=== PATIENT | male | born 1965 | race Caucasian/White ===

== ENCOUNTER 2017-01-20 14:52 | Observation (INO) ==
[2017-01-20] MEDS ORDERED: ASPIRIN PO STA (15:26)
[2017-01-20 15:45] LABS: MANUAL DIFF NEEDED? NO
[2017-01-20 15:49] LABS: BASO% 0.9 % (0.0-0.8); EOS# 0.12 X1000 (0.0-0.7); EOS% 1.8 % (0.0-10.0); HEMATOCRIT 41.9 % (42.0-52.0); HEMOGLOBIN 14.7 g/dL (14.0-18.0); LYMPH# 2.37 X1000 (1.2-3.4); LYMPH% 36.5 % (20.5-51.1); MCH 29.2 PG (27-31); MCHC 35.1 g/dL (33-37); MCV 83.1 FL (81-99); MONO# 0.62 X1000 (0.11-0.59); MONO% 9.6 % (1.7-9.3); MPV 11.4 FL (7.4-10.4); NEUT% 51.2 % (42.2-75.2); PLT 209 X1000 (130-400); RBC 5.04 XMIL (4.7-6.1)
[2017-01-20 15:57] LABS: INR 0.98; PROTIME 10.3 Seconds (9.2-11.7); PTT 32.5 Seconds (22.0-36.0)
[2017-01-20 16:15] LABS: AGAP 13; ALKALINE PHOSPHATASE 78 U/L (32-122); BUN 13 mg/dL (8-22); CALCIUM 8.8 mg/dL (8.8-10.2); CHLORIDE 98 mmol/L (98-107); CK PROFILE 64 U/L (24-204); COSMO 283; GOT 14 U/L (10-34); GPT 17 U/L (10-44); POTASSIUM 4.2 mmol/L (3.5-5.1); SODIUM 135 mmol/L (136-145); TCO2 24 mmol/L (25-35); TOTAL BILIRUBIN 0.51 mg/dL (0.20-1.00); TOTAL PROTEIN 7.1 g/dL (6.3-8.3)
--- NOTE | 2017-01-20 16:28 | Diag Imaging Result Doc PS360 ---
EXAM: CHEST-2 VIEWS HISTORY: CP TECHNIQUE: COMPARISON: 07/18/2016 FINDINGS: The lungs are well expanded. The heart is not enlarged. The vessels are not distended. There are no infiltrates. No pleural effusions. IMPRESSION: No acute abnormality. Electronically signed by Stew Garcia 01/20/2017 4:25 PM
[2017-01-20] MEDS ORDERED: HUMULIN R SUBQ ONE (19:30)
--- NOTE | 2017-01-20 20:45 | PROVIDER DOCUMENTATION ---
This chart was entered by Giselle Luna Scribe, acting as scribe for Zheng Quinonez MD. HPI-Chest Pain - General Chief Complaint: Chest Pain Stated Complaint: CP Time Seen by Provider: 01/20/17 20:08 Source: patient Allergies/Adverse Reactions: Patient Allergies Allergy/AdvReac Type Severity Reaction Status Date / Time rofecoxib [From Vioxx] Allergy Intermediate SHORTNESS Verified 01/20/17 16:35 OF BREATH Home Medications: Home Medication List Medication Instructions Recorded Confirmed Last Taken Type Hum Insulin NPH/Reg Insulin Hm 25 unit SQ QHS 03/27/14 01/20/17 01/19/17 22:00 History [Novolin 70-30 100 Unit/ml Vial] Hum Insulin NPH/Reg Insulin Hm 35 unit SQ QAM 03/27/14 01/20/17 01/20/17 11:00 History [Novolin 70-30 100 Unit/ml Vial] LISINOpril [Prinivil] 20 mg PO DAILY 01/20/17 01/20/17 01/20/17 11:00 History - History of Present Illness-CP Nature of Presenting Problem: 51 Y/O M presents to the ED with Chest Pain. 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 Pt states that the pain increased he became diaphoretic, N and had a dull pain with sharp intermittent pain all day today. Pt states he had a hx of stroke, HTN, Diabetes. Pt states that his first occurrence was a few weeks ago and it lasted about 20-30 mins and went away. Location: reports: central Chest Pain Radiation: reports: no radiation Quality of Pain: reports: dull, sharp Severity in ED: moderate, severe Onset/Duration: this afternoon Timing: still present Context/Activities at Onset: reports: light activity Associated Symptoms: reports: diaphoresis, nausea. denies: abdominal pain, back pain, vomiting Nitro Today/Relief: no nitro taken today Aspirin Treatment Today: 325 mg x 1, provided by ED Review of Systems - Adult - REVIEW OF SYSTEMS - ADULT Constitutional: denies: chills, fever Eyes: reports: no symptoms reported Ears, Nose, Mouth & Throat: reports: no symptoms reported Cardiovascular: reports: chest pain Respiratory: denies: shortness of breath Gastrointestinal: reports: nausea. denies: abdominal pain, diarrhea, vomiting Genitourinary: reports: no symptoms reported Musculoskeletal: reports: no symptoms reported Integumentary: reports: no symptoms reported Neurological: reports: no symptoms reported Psychiatric: reports: no symptoms reported Endocrine: reports: excessive sweating. denies: cold intolerance, heat intolerance Hematologic/Lymphatic: reports: no symptoms reported Allergic/Immunologic: reports: no symptoms reported All Other Systems: Reviewed and Negative Past History - Adult - PAST MEDICAL HISTORY-ADULT Review of Records: reports: Old Records Reviewed, Nursing Assessment Review, Medications Reviewed, Social history reviewed & non-contributory. Major Childhood Illnesses: reports: denies history Cardiovascular: reports: HTN, hyperlipidemia Respiratory: reports: denies history Gastrointestinal: reports: denies history Obstetrical/Gynecological: reports: denies history Genitourinary: reports: denies history Musculoskeletal: reports: denies history Neurological: reports: TIA, other (neuropathy) Endocrine/Immune: reports: Diabetes, other (neuropathy) Other Conditions: reports: denies history - PRIOR SURGERIES/PROCEDURES Surgical/Procedure History: reports: reviewed, not pertinent - PRIOR HOSPITALIZATIONS Prior Hospitalizations: reports: for similar symptoms - IMMUNIZATION STATUS Childhood Immunizations: See Nurse Assessment Flu Vaccine: See Nurse Assessment - FAMILY HISTORY Family History: reviewed, not pertinent Physical Exam-General - CONSTITUTIONAL General Appearance: alert, mild distress, obese - EYES Eyes: PERRL/EOMI, pink conjunctivae - HEAD, EARS, NOSE, MOUTH & THROAT HENMT: moist mucous membranes, normal ENT inspection, TMs normal - NECK Neck: full range of motion, supple, tender lateral, tender midline - RESPIRATORY Respiratory: lungs clear, normal breath sounds - CARDIOVASCULAR Cardiovascular: regular rate, rhythm - CHEST (BREASTS) Chest/Breast: tenderness (left side, with rash noted) - GASTROINTESTINAL (ABDOMEN) Abdominal Exam: non tender, soft - LYMPHATIC Lymphatic: no adenopathy - MUSCULOSKELETAL Back Exam: normal inspection Extremity: normal range of motion, normal gait, tenderness (to touch, pt has neuropathy also) - SKIN Integumentary: normal color, normal turgor - NEUROLOGIC Neurologic: grossly normal - PSYCHIATRIC Psych/Mental Status: normal mood/affect, normal thought content, normal thought process, oriented x 3 Progress - PLAN OF CARE/RESULTS Progress/Plan/Lab Results: Vital Signs - 8 hr 01/20/17 15:20 01/20/17 19:18 Temperature 98.1 F 98.5 F Pulse Rate 76 88 Respiratory Rate 15 18 Blood Pressure 166/78 145/75 O2 Sat by Pulse Oximetry 99 100 Laboratory Results - last 24 hr 01/20/17 01/20/17 01/20/17 15:25 15:25 15:25 WBC 6.49 RBC 5.04 Hgb 14.7 Hct 41.9 L MCV 83.1 MCH 29.2 MCHC 35.1 RDW Std Deviation 12.8 Plt Count 209 MPV 11.4 H Immature Gran % (Auto) 0.0 Neut % (Auto) 51.2 Lymph % (Auto) 36.5 [place] % (Auto) 9.6 H Eos % (Auto) 1.8 Baso % (Auto) 0.9 H Immature Gran # (Auto) 0.00 Neut # (Auto) 3.32 Lymph # (Auto) 2.37 [place] # (Auto) 0.62 H Eos # (Auto) 0.12 Baso # (Auto) 0.06 PT INR PTT (Actin FS) D-Dimer 0.18 Sodium 135 L Potassium 4.2 Chloride 98 Carbon Dioxide 24 L Anion Gap 13 BUN 13 Creatinine 0.8 Estimated GFR/1.73 m2 > 60 BUN/Creatinine Ratio 16 Glucose 335 H Calculated Osmolality 283 Calcium 8.8 Magnesium 2.0 Total Bilirubin 0.51 AST 14 ALT 17 Alkaline Phosphatase 78 Creatine Kinase 64 Troponin T Lte-F-Egvihzjroxg Pept Total Protein 7.1 Albumin 4.0 Globulin 3.1 Albumin/Globulin Ratio 1.3 01/20/17 01/20/17 01/20/17 15:25 15:25 15:25 WBC RBC Hgb Hct MCV MCH MCHC RDW Std Deviation Plt Count MPV Immature Gran % (Auto) Neut % (Auto) Lymph % (Auto) [place] % (Auto) Eos % (Auto) Baso % (Auto) Immature Gran # (Auto) Neut # (Auto) Lymph # (Auto) [place] # (Auto) Eos # (Auto) Baso # (Auto) PT 10.3 INR 0.98 PTT (Actin FS) 32.5 D-Dimer Sodium Potassium Chloride Carbon Dioxide Anion Gap BUN Creatinine Estimated GFR/1.73 m2 BUN/Creatinine Ratio Glucose Calculated Osmolality Calcium Magnesium Total Bilirubin AST ALT Alkaline Phosphatase Creatine Kinase Troponin T < 0.010 Ntn-G-Qdedpbwcmdo Pept 39 Total Protein Albumin Globulin Albumin/Globulin Ratio Orders Category Date Time Status Cardiac Monitoring DIRECTED Care 01/20/17 15:26 Active Saline Loc NOW Care 01/20/17 15:26 Active CHEST-2 VIEWS [RAD] Stat Exams 01/20/17 15:26 Completed CBC WITH ELECTRONIC DIFF [HEME] Stat Lab 01/20/17 15:25 Completed CK PROFILE [SP CHEM] Stat Lab 01/20/17 15:25 Completed COMPREHENSIVE METABOLIC PANEL [CHEM] Stat Lab 01/20/17 15:25 Completed D-DIMER [CHEM] Stat Lab 01/20/17 15:25 Completed MAGNESIUM [CHEM] Stat Lab 01/20/17 15:25 Completed PRO B-NATRIURETIC PEPTIDE Stat Lab 01/20/17 15:25 Completed PROTIME WITH INR [COAG] Stat Lab 01/20/17 15:25 Completed PTT [COAG] Stat Lab 01/20/17 15:25 Completed TROPONIN T Stat Lab 01/20/17 15:25 Completed TROPONIN T Stat Lab 01/20/17 20:08 Ordered Aspirin Med 01/20/17 15:26 Discontinued 325 mg PO STAT STA Insulin Human Regular [Humulin R] Med 01/20/17 19:30 Discontinued 10 unit SUBQ NOW ONE EKG [EKG] Stat Ther 01/20/17 15:26 Ordered EKG [EKG] Stat Ther 01/20/17 20:08 Ordered Result Diagrams: 01/20/17 15:25 01/20/17 15:25 - XRAY 1 XRAY Study: Chest Impression: Normal XRAY Interpretation: NAD - CONSULTS/PCP/HOSPITALIST Notification #1 *Consult/PCP/Hospitalist*: Dr. Diana Time Discussed: 20:39 Reason/Comments: Admit Consult Disposition: Admit (Admit Accepted) Departure - Departure Date of Disposition Decision: 01/20/17 Time of Disposition Decision: 20:41 DIAGNOSIS: Acute coronary syndrome Disposition: ADMITTED INPATIENT 09 Certified Medical Emergency: Emergent Condition: Fair Additional Freetext Instructions: ED Follow Up Instructions: You have been treated by a care provider in the Emergency Department. These instructions are being provided to you so you can have an understanding of how to care for yourself upon discharge. Upon discharge from the Emergency Department, you are responsible for making arrangements for follow-up care by a physician of your choice. Take all prescribed medications as directed. Return to the Emergency Department immediately for any new or worsening symptoms. You may call the Physician Referral phone number at [phone] to obtain a list of Physicians who are taking new patients. Referrals and Follow-Ups: None,PCP [Primary Care Provider] - - Critical Care Note This patient required my direct & personal management of CC.: No This chart was documented by the indicated scribe, (Giselle Luna Scribe) and accurately reflects the services I performed and decisions made by me, Zheng Quinonez MD, as attested by the provider's signature.
[2017-01-20] MEDS ORDERED: MORPHINE IV ONE (21:41)
[2017-01-20] MEDS ORDERED: NITROGLYCERIN TOP ONE (21:41)
--- NOTE | 2017-01-20 22:22 | Diag Imaging Result Doc PS360 ---
EXAM: CERVICAL SPINE 2-VIEWS HISTORY: radicular neuralgia TECHNIQUE: COMPARISON: None. FINDINGS: Good alignment. No precervical soft tissue swelling. No subluxation. Moderate bone spurring at C3-4. IMPRESSION: Degenerative changes in the mid cervical spine. Electronically signed by Stew Garcia 01/20/2017 10:19 PM
--- NOTE | 2017-01-20 23:28 | HISTORY AND PHYSICAL ---
PRIMARY CARE PHYSICIAN: No primary care physician. REASON FOR ADMISSION: Chest pain this afternoon. HISTORY OF PRESENT ILLNESS: Gume Chau is a 51-year-old man with past medical of type 2 diabetes, hypertension and diabetic neuropathy. Comes in today complaining of sudden precordial chest pain while working on his truck. Said the pain is as if someone hit him with a blunt object. It radiates down his left arm and associated numbness in the left arm. He said shortly broke out in intense sweat and became sick to his stomach. No vomiting. No shortness of breath but he felt a little lightheaded. The pain lasted about 20 minutes. He said in the past he has had minor pains like this but only lasted for a few minutes. He denies any antecedent leg swelling, PND or orthopnea, extremity redness. He denies any palpitations, no abdominal complaints. He also complains of another type of chest pain which he says it is burning in sensation and more superficial, this started hours after the initial pain. He said this is constant. The initial pressure-like heaviness he had earlier has been coming intermittently since he has been in the ER for a few minutes and go away. He had a stress test in 2014 which was negative for any ischemia. He denies any cough, fever or chills. REVIEW OF SYSTEMS: No polyuria or polydipsia. He does have chronic lower extremity numbness from diabetic neuropathy. Twelve system review was done, positive findings noted in HPI. Patient says the burning pain he experiences radiates from the front superficial and radiates from the front to the back and is superficial. ALLERGIES TO: Vioxx. HOME MEDICATIONS: He is on 70/30 insulin 35 in the morning and 25 at bedtime, lisinopril 20 mg daily. FAMILY HISTORY: Reports there no heart disease in his family but diabetes and stomach cancer in first-degree relatives. SURGICAL HISTORY: Nil. SOCIAL HISTORY: Lives with his girlfriend, does not smoke, drink or use drugs. LAB: EKG showed normal sinus rhythm, no ST-wave change consistent with ischemia. White count 6000, hemoglobin and hematocrit 14 and 41, platelets 209,000. Sodium 135, glucose 335, troponin x2 negative. D-dimer, PTT normal, chest x-ray negative . PHYSICAL EXAMINATION: GENERAL: Morbidly obese middle-aged man who is not in acute distress. He is A and O x3, normal mood and affect. HEENT: Head is normocephalic, atraumatic. PERRLA, EOMI intact, not pale. ENT oropharynx grossly normal. No central cyanosis. VITAL SIGNS: Blood pressure 145/75 heart rate 80, respirations 18, temperature 98.5, 100% room air. NECK: Supple. No JVD or carotid bruit, thyromegaly. CHEST: Clear to auscultation. Good air entry both lung muniz. CARDIOVASCULAR: First and second heart sounds heard. No gallops, murmurs, rubs. Rhythm is regular. ABDOMEN: Protuberant, soft, nontender. No mass or organomegaly. Bowel sounds are normal. RECTAL: Deferred at this time. EXTREMITIES: Had good pulses distally in all distal extremities with good volume and the above symmetrical. NEUROLOGICAL: The patient has severe hyperesthesia of the entire left thoracic area extending to the back. Does not cross the midline. No rash or eruptions noted. This hyperesthesia also extends to the base of his neck and to his left shoulder. No erythema noted. No abnormal skin findings noted. These extend from C3 all the way to the T6 dermatomes on the left side. Otherwise no focal deficits appreciated. SKIN: Intact. No breakdown, lesion. MUSCULAR EXAM: Grossly normal. ASSESSMENT: 1. Multiple chest pain syndromes of 1 of them could very well be ischemic in nature but is a superimposed neuralgia or at least neuropathic type chest pain. 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 Stress test has been ordered with an echocardiogram. If patient is still has suggestive features I will defer to the suction worker and they may proceed with the catheterization. Other chest pain is very neuropathic in nature. Could be atypical manifestations of diabetic neuropathy which usually would be symmetrical although more neuropathy is not unusual or a mono neuropathy multiplex can occur who. Another diagnosis here will be a herpes zoster although I will write if it is this is a very extensive because of the multiple dermatomes involved and this will be highly unusual for extensive zoster like presentation. The patient however is at risk being immunocompromised being a poorly controlled diabetic. 2. Type 2 diabetes uncontrolled. Check A1c. Continue with insulin and adjust depending on A1c. Consider adding oral agent such metformin or 1 of the other newer agents i.e. GLP-1 or DPP-4 inhibitor. 3. Hypertension. 4. Because of concerns that this patient may have an ischemic etiology underneath his presentation and I am little concerned that may have early on features suggestive of unstable angina I will start patient on Lovenox, continue aspirin, start on statins for now and consult cardiology and schedule the above studies in a.m. I also gave the patient a trial dose of Lyrica for presumptive neuropathic chest pain. cc: Loni Diana MD
[2017-01-20] MEDS ORDERED: ZOFRAN IV PRN (23:46)
[2017-01-20] MEDS ORDERED: MORPHINE IV PRN (23:46)
[2017-01-20] MEDS ORDERED: LIPITOR PO ONE (23:46)
[2017-01-20] MEDS ORDERED: TYLENOL PO PRN (23:46)
[2017-01-20] MEDS ORDERED: CLEOCIN T 1% TOP ONE (23:46)
[2017-01-20] MEDS ORDERED: LOVENOX SUBQ STA (23:46)
[2017-01-21] MEDS: LYRICA PO SCH ×3 (00:05→21:36)
[2017-01-21 00:18] LABS: HEMOGLOBIN A1C 9.4 % (4.8-6.0)
--- NOTE | 2017-01-21 05:35 | EKG Report ---
Test Performed on : 01/20/2017 3:14:24 PM Test Reason : CP/Re-Ordered Blood Pressure : / mmHG Vent. Rate : 077 BPM Atrial Rate : 077 BPM P-R Int : 172 ms QRS Dur : 112 ms QT Int : 362 ms P-R-T Axes : 025 042 037 degrees QTc Int : 409 ms Normal sinus rhythm. Normal ECG When compared with ECG of 31-AUG-2016 19:36, No significant change was found Unconfirmed Result
[2017-01-21] MEDS: PRILOSEC PO SCH (06:42)
[2017-01-21] MEDS ORDERED: INSULIN PEN NEEDLES ONE (06:57)
[2017-01-21 07:24] LABS: AGAP 12; ALBUMIN 3.6 g/dL (3.5-5.0); ALKALINE PHOSPHATASE 68 U/L (32-122); BUN 12 mg/dL (8-22); CALCIUM 8.6 mg/dL (8.8-10.2); CHLORIDE 102 mmol/L (98-107); COSMO 284; GOT 16 U/L (10-34); GPT 18 U/L (10-44); HDL 30 mg/dL (35-55); LDL 84 mg/dL; SODIUM 140 mmol/L (136-145); TCO2 26 mmol/L (25-35); TOTAL BILIRUBIN 0.55 mg/dL (0.20-1.00); TOTAL PROTEIN 6.3 g/dL (6.3-8.3); TRIGLYCERIDES 200 mg/dL (39-160); VLDL 40 mg/dL
--- NOTE | 2017-01-21 08:01 | Diag Imaging Result Doc PS360 ---
EXAM: THORACIC SPINE INDICATION: radicular neuralgia TECHNIQUE: 4 views COMPARISON: None. FINDINGS: There are bulky ventral marginal osteophytes at multiple levels involving the mid and lower thoracic spine. The vertebral body heights are well-maintained. There is no definite fracture, subluxation, or intrinsic osseous lesion, otherwise. IMPRESSION: Multilevel endplate degenerative osteophyte formation as described. Electronically signed by Luis Vasquez 01/21/2017 7:59 AM
[2017-01-21] MEDS ORDERED: LEXISCAN ONE (10:56)
--- NOTE | 2017-01-21 13:05 | CONSULTATION ---
DATE OF CONSULTATION: 01/21/2017 HISTORY OF PRESENT ILLNESS: Cardiology was consulted for chest pain. Mr. Chau is a 55-year-old, gentleman with history of having diabetes, hypertension, presented to the emergency room with complaints of chest pain. He has been having episodes of chest discomfort which he describes as dull in character over the last 2 weeks, sometimes with sharp episodes of chest pain which occurred at rest with minimal exertion with radiation to the left arm associated with heaviness and numbness, with diaphoresis as well. He was ruled out for myocardial infarction by cardiac enzymes. Underwent a stress test today. There are no palpitations. There is no dizziness or syncope. REVIEW OF SYSTEMS: A 14-point review of system was done. GI System: There is no history of nausea, vomiting, diarrhea. There is no history of hematemesis or melena. Central nervous system: No focal weakness to suggest a CVA or TIA. System: There is no dysuria or hematuria. PAST MEDICAL HISTORY: Hypertension, diabetes, TIA at the age of 40, hyperlipidemia. His last stress test in 2014 revealed fixed defect in the inferoapical with severe grade, fixed. Cardiac catheterization then was recommended that was deferred. His last ejection fraction was 45% in 2014. HOME MEDICATIONS: 1. Insulin 70/30 35 units in the morning and 25 at bedtime. 2. Lisinopril 20. SOCIAL HISTORY: He does not smoke. There is no history of alcohol abuse. PHYSICAL EXAMINATION: Vital Signs: On examination, blood pressure was 143/69. Cardiovascular System: Normal jugular venous pressure. There is no thyromegaly. No carotid bruit. First and second heart sounds were heard. There is no S3 gallop. Respiratory System: Normal air entry. There is no crepitations or rhonchi. Abdomen: Soft, obese, nontender. There was no guarding or rigidity. Bowel sounds were heard. Central nervous system: Alert and was moving all 4 extremities. Extremities: Examination of extremities revealed no pedal edema. ALLERGIES: Rofecoxib. ASSESSMENT AND PLAN: 1. Mr. Gume Chau is a 51-year-old gentleman with history of hypertension, hyperlipidemia, and transient ischemic attack in the past, who comes in with exertional chest discomfort, has features of unstable angina. However, his Cardiolite stress test revealed a fixed defect suggestive of scar. Given his worsening symptoms and past medical history, I have recommended that he undergo a left heart catheterization. Risks, benefits, alternatives were explained. Patient will be set up for left heart catheterization in the morning. 2. In addition to his medications, we will put him on aspirin, beta-blockers. 3. His A1c is elevated. I will defer that to the hospitalist service. Thank you for the consult. We will follow hospital course. cc: Aquiles Pearl MD
[2017-01-21] MEDS: NITROGLYCERIN TOP SCH ×3 (14:14→21:36)
[2017-01-21] MEDS: PRINIVIL PO SCH (14:16)
[2017-01-21] MEDS: HUMULIN 70/30 SUBQ SCH (14:17)
[2017-01-21] MEDS: ASPIRIN PO SCH (14:33)
--- NOTE | 2017-01-21 15:11 | PROGRESS NOTE ---
DATE: 01/21/2017 SUBJECTIVE: Patient reports feeling fine. No chest pain any more. No chest discomfort or nausea or vomiting. OBJECTIVE: Vital Signs: Temperature 98 degrees, heart rate 61, respiratory rate 16, blood pressure 143/69, O2 saturation 92% on nasal cannula. General Examination: This is a morbidly obese, middle-aged male, lying in bed, in no acute distress. HEENT: Head is normocephalic, atraumatic. Anicteric sclerae and pale conjunctivae. Mucous membranes moist. Neck: Supple. No JVD noted. No carotid bruits. No lymphadenopathy. No thyromegaly. Cardiovascular: S1, S2 heard. No murmurs, gallops, or rubs. Regular rate and rhythm. Respiratory: Clear bilaterally to auscultation. No work of breathing or using accessory muscles. Abdomen: Soft, nontender to palpation. Bowel sounds present. No organomegaly. Extremities: No clubbing, cyanosis, or edema. Peripheral pulses present in both legs. Neurological: Patient is alert and oriented x3. Able to move 4 extremities. Cranial nerves 2-12 grossly normal. LABORATORY DATA: The BMP from today is normal and troponin 3 sets have been negative so far. ASSESSMENT AND PLAN: 1. Recurrent chest pain. The patient has been evaluated by Cardiology and they are going to perform a left heart catheterization tomorrow. We will go from there. 2. Diabetes type 2. The patient is on sliding scale insulin. We will continue with the same management. 3. Hypertension. Blood pressure is so far stable in the 140's and 150's. We are going to continue with the same management. cc: Anirudh Johnson MD
--- NOTE | 2017-01-21 15:28 | Diag Imaging Result Document ---
PROCEDURE NAME: MYOCARDIAL PERF SCAN, STR/REST - 01/21/2017 SUMMARY: The patient was administered 15.5 millicuries of technetium-99m sestamibi after which resting cardiac images were obtained. The patient was subsequently stressed using a Lexiscan protocol. Following the administration of Lexiscan, the heart rate increased from 59 beats per minute to 75 beats per minute while the blood pressure went from 136/66 to 122/72. With Lexiscan, the patient denied chest discomfort. Following the administration of Lexiscan, the patient was administered 45.7 millicuries of technetium 99-m sestamibi after which gated stress cardiac images were obtained. Baseline ECG demonstrated sinus bradycardia. With Lexiscan there were no diagnostic ST-segment changes. SPECT images were reconstructed in the short, horizontal, and vertical long axis. Review of these images demonstrated moderately diminished activity in the inferior wall on stress images which appears more diminished on resting images. No significant reversibility is evident. Gated images demonstrate a calculated left ventricular ejection fraction of 49% with symmetrical wall motion/thickening. CONCLUSIONS: 1. Adequate response to Lexiscan. 2. Clinically negative for chest pain. 3. Electrocardiographically negative for Lexiscan induced myocardial ischemia. 4. Lexiscan sestamibi images demonstrate nonreversible moderately diminished activity in the inferior wall with corresponding preserved regional wall motion most consistent with soft tissue/diaphragm attenuation artifact in light of patient's body habitus. There is no convincing scintigraphic evidence of inducible myocardial ischemia. Calculated left ejection fraction is 49%. cc: MD Loni De Jesus MD
--- NOTE | 2017-01-21 15:56 | ECHO REPORT ---
ORDER DATE: 01/20/2017 MEASUREMENTS: 1. Left atrium 3.9 cm. 2. Aortic root 3.8 cm. SUMMARY: 1. Technically difficult study due to limited acoustic window quality. Intravenous echo contrast agent Definity was utilized to enhance endocardial definition for purposes of assessing left ventricular systolic function and wall motion. 2. Aortic valve is trileaflet and opens normally on 2-dimensional images. Mitral, tricuspid, and pulmonic valves are without gross structural abnormality. There is trace tricuspid regurgitation and mild pulmonic insufficiency. Aortic root is upper normal in size. 3. Normal left ventricular chamber size with moderate concentric left hypertrophy suggested on 2- D images. Estimated left ejection fraction appears to be 50%-55%. No regional wall motion abnormalities are evident. Left atrium is upper normal in size. Right atrium and right ventricle are grossly normal in size with grossly preserved right ventricular systolic function. 4. No pericardial effusion. 5. Appearance of inferior vena cava suggests normal central venous pressure. CONCLUSIONS: 1. Technically difficult study. 2. No significant valvular abnormality evident. 3. Moderate concentric left hypertrophy with estimated left ejection fraction 50%-55%. 4. Upper normal aortic root size. cc: MD Loni De Jesus MD
[2017-01-21] MEDS ORDERED: HUMULIN 70/30 SUBQ SCH (21:00)
[2017-01-22] MEDS: NITROGLYCERIN TOP SCH ×2 (01:31→10:56)
[2017-01-22] MEDS ORDERED: NS 1,000 ML IV SCH ×2 (02:59→10:00)
[2017-01-22] MEDS: PRILOSEC PO SCH (06:27)
[2017-01-22 06:53] LABS: HEMOGLOBIN 14.1 g/dL (14.0-18.0); MCH 29.7 PG (27-31); MCHC 34.4 g/dL (33-37); MCV 86.3 FL (81-99); MPV 11.3 FL (7.4-10.4); RBC 4.75 XMIL (4.7-6.1)
--- NOTE | 2017-01-22 06:57 | EKG Report ---
Test Performed on : 01/22/2017 05:58:35 AM Test Reason : heart cath Blood Pressure : / mmHG Vent. Rate : 060 BPM Atrial Rate : 060 BPM P-R Int : 182 ms QRS Dur : 120 ms QT Int : 406 ms P-R-T Axes : 054 053 044 degrees QTc Int : 406 ms Normal sinus rhythm. Nonspecific intraventricular conduction delay Borderline ECG When compared with ECG of 20-JAN-2017 15:14, No significant change was found Confirmed by Fabian Ham MD ([id number]) on 01/23/2017 12:59:53 PM
[2017-01-22 07:04] LABS: PROTIME 10.5 Seconds (9.2-11.7); PTT 32.5 Seconds (22.0-36.0)
[2017-01-22 07:29] LABS: AGAP 8; ALBUMIN 3.8 g/dL (3.5-5.0); ALKALINE PHOSPHATASE 69 U/L (32-122); BUN 13 mg/dL (8-22); CALCIUM 8.6 mg/dL (8.8-10.2); CHLORIDE 101 mmol/L (98-107); COSMO 279; GOT 15 U/L (10-34); GPT 22 U/L (10-44); POTASSIUM 3.9 mmol/L (3.5-5.1); SODIUM 136 mmol/L (136-145); TCO2 27 mmol/L (25-35); TOTAL BILIRUBIN 0.54 mg/dL (0.20-1.00); TOTAL PROTEIN 6.6 g/dL (6.3-8.3)
[2017-01-22] MEDS: ASPIRIN PO SCH (08:07)
[2017-01-22] MEDS: PRINIVIL PO SCH (08:07)
[2017-01-22] MEDS ORDERED: NITROGLYCERIN ONE (08:07)
[2017-01-22] MEDS ORDERED: HEPARIN 1000 UNITS/NS 2,000 UNIT/1,000 ML IV.SOLN ONE (08:08)
[2017-01-22] MEDS ORDERED: DEMEROL ONE (08:31)
[2017-01-22] MEDS ORDERED: VERSED ONE (08:31)
--- NOTE | 2017-01-22 10:06 | CARDIAC CATH REPORT ---
DATE: 01/22/2017 PROCEDURE: 1. Left heart catheterization. 2. Selective coronary arteriography. 3. Left ventriculogram. 4. Opacification of right femoral artery. 5. Deployment of 6-Martiniquais Angio-Seal device. HISTORY: A 51-year-old male, morbidly obese, presenting with recurrent chest pain. Dr. Pearl saw him in consultation, recommended a nuclear stress test which showed an inferior abnormality. He advised to pursue left heart catheterization. The patient was appropriately consented. He requested to go ahead with arteriography. 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 The right groin was prepped and draped in standard fashion, anesthetized with lidocaine 1%. He received a total of 2 mg of Versed, 50 mg of Demerol for sedation. A 6-Martiniquais sheath was inserted into the right femoral artery following the modified Seldinger technique. Using 6-Martiniquais 4 left and right Isela catheters, the left and right coronary artery was sequentially opacified. During the opacification of the left coronary artery, 200 mcg of intracoronary nitroglycerin were administered. Using the right Isela catheter, the aortic valve was negotiated. Left ventricular pressure was determined. Left ventriculogram was performed in the 60-degree EGYPTIAN projection and 30-degree PANCHAL projection by hand injection. During the opacification of the ventricle, there was a change in the appearance of the EKG into a bundle branch block type of pattern, probably rate related. This reverted back to normal after the procedure was completed. At the end of the procedure, all the catheters were removed. The sheath was flushed. Right femoral artery opacified. Angio-Seal device was deployed successfully. Hemostasis was obtained. The patient tolerated the procedure well without any complications. SUMMARY OF HEMODYNAMIC FINDINGS: Central aortic pressure 157/84. Left ventricular pressure 135/18. Post LV gram 126/19. Final central aortic pressure 146/73. This indicates borderline elevation of LVEDP. SUMMARY OF ANGIOGRAPHIC FINDINGS: 1. Left main coronary artery: The left main coronary artery is angiographically normal. The left main divides into the LAD and circumflex. 2. Left anterior descending coronary artery: The left anterior descending coronary artery is anatomically normal. It gives rise to a prominent diagonal branch which shows mild disease proximal in the range of 20%. No critical lesions are noted. 3. Circumflex coronary artery: The circumflex coronary artery is a nondominant vessel. It basically gives rise to the marginal branch which is free of any significant obstruction. The circumflex also gives rise to a tiny lateral branch. 4. Right coronary artery: The right coronary artery is a large superdominant vessel. It has a large caliber in the order of 4.5 mm. It shows mild disease in the order of 20%. It gives rise to a sinus jose alberto branch, marginal branches. More distally the right coronary artery gives rise to a posterior descending branch and posterior ventricular lateral branch. LEFT VENTRICULOGRAM: Left ventriculogram in the 30-degree PANCHAL projection and 60-degree EGYPTIAN projection reveals normal left ventricular contractility. No mitral regurgitation. Ejection fraction 60%. OPACIFICATION OF RIGHT FEMORAL ARTERY: The right femoral artery is unremarkable. Angio-Seal device was deployed successfully. IMPRESSION: In summary, this study shows: 1. Minimal coronary atherosclerosis involving the diagonal branch of the LAD, no more than 20%, and also the right coronary artery in its proximal to middle third, no more than 20%. 2. Normal left ventricular systolic function. Ejection fraction 60%. 3. LVEDP at the upper limits of normal. 4. No mitral regurgitation. No aortic stenosis. 5. Unremarkable right femoral artery. RECOMMENDATIONS: The patient will pursue medical therapy under the services of his primary medical doctor. His prognosis at least for the short and medium term is actually quite good. Thank you for the opportunity to participate in his evaluation. cc: Johnny Preciado MD
[2017-01-22] MEDS: HUMULIN 70/30 SUBQ SCH (10:56)
[2017-01-22] MEDS: LYRICA PO SCH (10:56)
--- NOTE | 2017-01-22 15:23 | EKG Report ---
Test Performed on : 01/22/2017 10:00:18 AM Test Reason : post cath Blood Pressure : / mmHG Vent. Rate : 055 BPM Atrial Rate : 055 BPM P-R Int : 190 ms QRS Dur : 120 ms QT Int : 418 ms P-R-T Axes : 053 051 055 degrees QTc Int : 399 ms Sinus bradycardia. Nonspecific intraventricular conduction delay Borderline ECG When compared with ECG of 22-JAN-2017 05:58, (Unconfirmed) No significant change was found Confirmed by Fabian Ham MD ([id number]) on 01/23/2017 1:00:54 PM
[2017-01-22 16:18] VITALS: BP 148/70
--- NOTE | 2017-01-22 17:40 | DISCHARGE SUMMARY ---
ADMISSION DATE: 01/20/2017 DISCHARGE DATE: 01/22/2017 PERTINENT PROCEDURES: 1. Chest x-ray showed no acute abnormality. 2. Cervical spine x-ray showed degenerative changes in the mid cervical spine. 3. Thoracic spine x-ray show multilevel endplate degenerative osteophyte formation. 4. Echocardiogram showed an EF of 50 to 55%. 5. Myocardial perfusion scan with an adequate response to the Lexiscan. Also showed nonreversible moderately diminished activity in the inferior wall with corresponding preserved regional wall motion most consistent with soft tissue diaphragm attenuation artifact in light of patient's body habitus. No evidence of inducible myocardial ischemia. 6. Left heart cath performed by Dr. Preciado showed minimal coronary atherosclerosis involving the diagonal branch of the LAD and right coronary artery. Normal EF. DISCHARGE DIAGNOSES: 1. Recurrent chest pain status post negative Lexiscan, as well as a negative heart catheterization. The patient will pursue per cardiology medical therapy under the services of a primary medical doctor. Patient's prognosis per cardiology for at least short-term or medium-term is actually quite good, stable. 2. Diabetes mellitus type 2. Continue with home medications. 3. Hypertension. Continue with home medications. HOSPITAL COURSE: Briefly, Mr. Chau is a 55-year-old male with a history of diabetes and hypertension, who presented to the ED with chest pain. He has had episodes of chest discomfort for which he describes as dull in character for 2 weeks. Sometimes sharp episodes of chest pain which occurred at rest with minimal exertion with radiation to the left arm, associated with heaviness, numbness, and diaphoresis. He was ruled out for [place] with cardiac enzymes. He underwent a stress test that revealed a fixed defect suggestive of a scar. Cardiology recommended that he undergo a left heart catheterization that showed minimal coronary atherosclerosis involving the diagonal branch of the LAD of no more than 20% and also the RCA in its proximal to middle 3rd, no more than 20%. Normal LV systolic function with an EF of 60%. Their recommendation is to pursue medical therapy under the services of her primary medical doctor and that his prognosis at least for short-term and medium-term is actually quite good. The patient is appropriate for discharge home today. VITAL SIGNS: Temperature is 97.6 degrees, heart rate 55, respirations 14, blood pressure is 159/74, O2 is 100%. DISCHARGE DIET: Healthy heart. DISCHARGE MEDICATIONS: As per Dr. Johnson: 1. Aspirin 81 mg p.o. daily. 2. Novolin 70/30 25 units subcutaneous at bedtime, 40 units subcutaneous q.a.m. 3. Prinivil 20 mg p.o. daily. 4. Lyrica 50 mg p.o. b.i.d. FOLLOW-UP: The patient will need to follow up with a primary care physician, to the list that has been provided to him to follow up for medical management. The patient can return to the ED for any worsening of symptoms. DISCHARGE TIME: 33 minutes. Dictated by KIYA Bermudez for Anirudh Johnson MD cc: Anirudh Johnson MD MTDD
== END 2017-01-22 17:05 | disposition home or self-care (01) ==
LOC: 3N 14:52 → ED 14:52 → SUATTDRO 23:23 → 3S 01-22 09:13
PROVIDERS: ATTEND Internal Medicine

== ENCOUNTER 2019-10-12 23:24 | Observation (INO) ==
[2019-10-12] MEDS ORDERED: ASPIRIN PO ONE (23:43)
[2019-10-13 00:42] LABS: AGAP 13; ALB/GLOB RATIO 1.4; ALBUMIN 4.2 g/dL (3.5-5.0); ALKALINE PHOSPHATASE 73 U/L (32-122); BUN 15 mg/dL (8-22); CALCIUM 10.1 mg/dL (8.8-10.2); CHLORIDE 100 mmol/L (98-107); CK PROFILE 82 U/L (24-204); COSMO 280; CREATININE 0.9 mg/dL (0.7-1.2); ESTIMATED GFR > 60; GLUCOSE 100 mg/dL (70-104); GOT 20 U/L (10-34); GPT 19 U/L (10-44); MAGNESIUM 2.1 mg/dL (1.5-2.7); POTASSIUM 4.2 mmol/L (3.5-5.1); SODIUM 140 mmol/L (136-145); TCO2 27 mmol/L (25-35); TOTAL BILIRUBIN 0.35 mg/dL (0.20-1.00); TOTAL PROTEIN 7.2 g/dL (6.3-8.3)
[2019-10-13 01:15] LABS: BASO# 0.06 X1000 (0.0-0.2); BASO% 0.6 % (0.0-0.8); EOS# 0.22 X1000 (0.0-0.7); EOS% 2.4 % (0.0-10.0); HEMATOCRIT 38.9 % (42.0-52.0); HEMOGLOBIN 13.3 g/dL (14.0-18.0); IMM GRAN# 0.02 X1000 (0.0-0.04); IMM GRAN% 0.2 % (0.0-0.5); LYMPH# 2.42 X1000 (1.2-3.4); LYMPH% 26.2 % (20.5-51.1); MCH 29.2 PG (27-31); MCHC 34.2 g/dL (33-37); MCV 85.3 FL (81-99); MONO# 1.08 X1000 (0.11-0.59); MONO% 11.7 % (1.7-9.3); MPV 10.7 FL (7.4-10.4); NEUT# 5.44 X1000 (1.4-6.5); NEUT% 58.9 % (42.2-75.2); PLT 256 X1000 (130-400); RBC 4.56 XMIL (4.7-6.1); RDW 13.1 % (11.5-14.5); WBC 9.24 X1000 (4.8-10.8)
--- NOTE | 2019-10-13 03:55 | PROVIDER DOCUMENTATION ---
This chart was entered by Heidy Ortiz Scribe, acting as scribe for Christina Nagel MD. HPI-Chest Pain - General Chief Complaint: Chest Pain Stated Complaint: CHEST PAIN/HIGH HEART RATE Time Seen by Provider: 10/12/19 23:54 Source: patient Allergies/Adverse Reactions: Patient Allergies Allergy/AdvReac Type Severity Reaction Status Date / Time rofecoxib [From Vioxx] Allergy Intermediate SHORTNESS Verified 10/13/19 00:16 OF BREATH Home Medications: Home Medication List Medication Instructions Recorded Confirmed Last Taken Type Hum Insulin NPH/Reg Insulin Hm 18 unit SQ TID 03/27/14 10/13/19 10/12/19 History [Novolin 70-30 100 Unit/ml Vial] Amitriptyline [Elavil] 25 mg PO QHS 12/26/18 10/13/19 10/12/19 History Amlodipine [Norvasc] 10 mg PO DAILY 12/26/18 10/13/19 10/12/19 History LOVAstatin [Mevacor] 20 mg PO QHS 12/26/18 10/13/19 10/12/19 History Lisinopril 40 mg PO DAILY 12/26/18 10/13/19 10/12/19 History Insulin Detemir [Levemir Flextouch] 10/13/19 Unknown History Nitroglycerin [Nitrostat] 1 tab SUBLINGUAL Q5M PRN PRN 10/13/19 10/13/19 10/12/19 History - History of Present Illness-CP Nature of Presenting Problem: Pt is a 54 yowm presenting in the ED with c/o throbbing chest pain that pt says started around 6pm in the sternal area and radiated into his left shoulder. Pt says that he was visiting his son and a nearby chicken house had a strong [place] smell. Pt reports that he has felt fatigued all day and that his face has been red in appearance. Pt states that he took a nitroglycerin and that now in the ED he has a headache and the pain feels like pressure just in the left mammary area of his chest. Pt has a hx of [place] and diabetes. 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 Pt denies N/V, fever/chills and SOB. Pt is A&O x3 and nontoxic in appearance. Location: reports: substernal Chest Pain Radiation: reports: shoulders (left) Quality of Pain: reports: throbbing Severity in ED: mild Onset/Duration: abrupt, 4-6 hours ago Timing: still present, changing over time Context/Activities at Onset: reports: light activity. denies: out of country travel Modifying Factors: improves with: other medication (nitroglycerin) Associated Symptoms: reports: headache. denies: abdominal pain, diaphoresis, dizziness, fever/chills, nausea, shortness of breath, syncope, vomiting Nitro Today/Relief: 0.4 mg x 1, provided at home Aspirin Treatment Today: 325 mg x 1, provided by ED Prior Chest Pain/Cardiac Workup: reports: heart attack Similar Symptoms Previously?: Yes (pt reported that he had a [place]) Recently Seen Here or By Another Healthcare Provider: No Review of Systems - Adult - REVIEW OF SYSTEMS - ADULT Constitutional: denies: chills, fever Eyes: reports: no symptoms reported Ears, Nose, Mouth & Throat: reports: no symptoms reported Cardiovascular: reports: see HPI, chest pain (sternal). denies: syncope Respiratory: denies: cough, shortness of breath Gastrointestinal: denies: abdominal pain, diarrhea, nausea, vomiting Genitourinary: reports: no symptoms reported Musculoskeletal: reports: no symptoms reported Integumentary: reports: no symptoms reported Neurological: reports: see HPI, headache/migraines Psychiatric: reports: no symptoms reported Endocrine: reports: no symptoms reported Hematologic/Lymphatic: reports: no symptoms reported Allergic/Immunologic: reports: no symptoms reported All Other Systems: Reviewed and Negative Past History - Adult - PAST MEDICAL HISTORY-ADULT Review of Records: reports: Old Records Reviewed, Nursing Assessment Review, Medications Reviewed, Social history reviewed & non-contributory. Major Childhood Illnesses: reports: denies history Cardiovascular: reports: HTN, hyperlipidemia, [place] Respiratory: reports: denies history Gastrointestinal: reports: denies history Genitourinary: reports: denies history Musculoskeletal: reports: denies history Neurological: reports: TIA, other (neuropathy) Endocrine/Immune: reports: Diabetes, other (neuropathy) Other Conditions: reports: denies history - PRIOR SURGERIES/PROCEDURES Surgical/Procedure History: reports: reviewed, not pertinent - PRIOR HOSPITALIZATIONS Prior Hospitalizations: reports: for similar symptoms - IMMUNIZATION STATUS Childhood Immunizations: See Nurse Assessment Flu Vaccine: See Nurse Assessment - FAMILY HISTORY Family History: reviewed, not pertinent - SOCIAL HISTORY Smoking: quit greater than 1 year Substance Use: denies Living Situation: family Physical Exam-General - PHYSICAL EXAM-ADULT Initial Vital Signs Reviewed: Yes - CONSTITUTIONAL General Appearance: appears well, alert, no apparent distress, obese (centrally) - EYES Eyes: PERRL/EOMI, pink conjunctivae - HEAD, EARS, NOSE, MOUTH & THROAT HENMT: normocephalic/atraumatic, moist mucous membranes - NECK Neck: non-tender, full range of motion - RESPIRATORY Respiratory: lungs clear, normal breath sounds, no respiratory distress, other (mild left mammary tenderness) - CARDIOVASCULAR Cardiovascular: normal peripheral pulses, regular rate, rhythm, no edema - GASTROINTESTINAL (ABDOMEN) Abdominal Exam: normal bowel sounds, non tender, soft - LYMPHATIC Lymphatic: no adenopathy - MUSCULOSKELETAL Back Exam: normal inspection, no CVA tenderness, no vertebral tenderness Extremity: normal range of motion, non-tender, normal gait, no pedal edema, no calf tenderness - SKIN Integumentary: normal color, normal turgor, warm/dry - NEUROLOGIC Neurologic: grossly normal - PSYCHIATRIC Psych/Mental Status: normal mood/affect, normal thought content, normal thought process, oriented x 3 - HEART Score HEART Score: History: Moderately Suspicious HEART Score: ECG: Non-Specific Repolarization Disturbance/LBBB/PM HEART Score: Age: 45-65 Years HEART Score: Risk Factors for Atherosclerotic Disease: > or = 3 Risk Factors or History of Atherosclerotic Disease HEART Score: Troponin: < or = Normal Limit Total HEART Score:: 5 Progress - PLAN OF CARE/RESULTS Progress/Plan/Lab Results: Vital Signs - 8 hr 10/12/19 23:33 10/13/19 01:30 10/13/19 02:30 Temperature 98.3 F Pulse Rate 70 66 60 Respiratory Rate 20 17 18 Blood Pressure 137/61 116/59 171/78 O2 Sat by Pulse Oximetry 97 94 L 95 10/13/19 03:30 Temperature Pulse Rate 59 L Respiratory Rate 13 Blood Pressure 183/86 O2 Sat by Pulse Oximetry 96 Laboratory Results - last 24 hr 10/13/19 10/13/19 10/13/19 00:02 00:02 00:02 WBC Cancelled RBC Cancelled Hgb Cancelled Hct Cancelled MCV Cancelled MCH Cancelled MCHC Cancelled RDW Std Deviation Cancelled Plt Count Cancelled MPV Cancelled Immature Gran % (Auto) Cancelled Neut % (Auto) Cancelled Lymph % (Auto) Cancelled [place] % (Auto) Cancelled Eos % (Auto) Cancelled Baso % (Auto) Cancelled Immature Gran # (Auto) Cancelled Neut # (Auto) Cancelled Lymph # (Auto) Cancelled [place] # (Auto) Cancelled Eos # (Auto) Cancelled Baso # (Auto) Cancelled Corrected WBC (Man) Cancelled D-Dimer, Quantitative Sodium 140 Potassium 4.2 Chloride 100 Carbon Dioxide 27 Anion Gap 13 BUN 15 Creatinine 0.9 Estimated GFR/1.73 m2 > 60 BUN/Creatinine Ratio 17 Glucose 100 Calculated Osmolality 280 Calcium 10.1 Magnesium 2.1 Total Bilirubin 0.35 AST 20 ALT 19 Alkaline Phosphatase 73 Creatine Kinase 82 Troponin T High Sens 6 Total Protein 7.2 Albumin 4.2 Globulin 3.0 Albumin/Globulin Ratio 1.4 10/13/19 10/13/19 10/13/19 00:02 01:09 02:59 WBC 9.24 RBC 4.56 L Hgb 13.3 L Hct 38.9 L MCV 85.3 MCH 29.2 MCHC 34.2 RDW Std Deviation 13.1 Plt Count 256 MPV 10.7 H Immature Gran % (Auto) 0.2 Neut % (Auto) 58.9 Lymph % (Auto) 26.2 [place] % (Auto) 11.7 H Eos % (Auto) 2.4 Baso % (Auto) 0.6 Immature Gran # (Auto) 0.02 Neut # (Auto) 5.44 Lymph # (Auto) 2.42 [place] # (Auto) 1.08 H Eos # (Auto) 0.22 Baso # (Auto) 0.06 Corrected WBC (Man) D-Dimer, Quantitative 0.41 Sodium Potassium Chloride Carbon Dioxide Anion Gap BUN Creatinine Estimated GFR/1.73 m2 BUN/Creatinine Ratio Glucose Calculated Osmolality Calcium Magnesium Total Bilirubin AST ALT Alkaline Phosphatase Creatine Kinase Troponin T High Sens 7 Total Protein Albumin Globulin Albumin/Globulin Ratio Orders Category Date Time Status CHEST-1 VIEW [RAD] Stat Exams 10/12/19 23:44 Taken CBC WITH ELECTRONIC DIFF [HEME] Stat Lab 10/13/19 01:09 Completed CK PROFILE [SP CHEM] Stat Lab 10/13/19 00:02 Completed COMPREHENSIVE METABOLIC PANEL [CHEM] Stat Lab 10/13/19 00:02 Completed D-DIMER [COAG] Stat Lab 10/13/19 00:02 Completed MAGNESIUM [CHEM] Stat Lab 10/13/19 00:02 Completed TROPONIN T HIGH SENSITIVITY Stat Lab 10/13/19 00:02 Completed TROPONIN T HIGH SENSITIVITY Stat Lab 10/13/19 02:59 Completed Aspirin Med 10/12/19 23:43 Discontinued 324 mg PO NOW ONE Result Diagrams: 10/13/19 01:09 10/13/19 00:02 - EKG 1 Time of EKG reading by physician:: 23:45 EKG Read and Signed by:: Christina Ngael EKG Interpretation (*Must complete 3 of following elements*): Abnormal Rate: 66 Rhythm: NSR [place]: normal QRS: normal Comments: Nonspecific T wave abnormaility; No STEMI - XRAY 1 XRAY Study: Chest Impression: See EMR Report - CONSULTS/PCP/HOSPITALIST Notification #1 *Consult/PCP/Hospitalist*: d/w Dr Grimes Time Discussed: 03:57 Consult Disposition: Admit (for observation) Departure - Departure Date of Disposition Decision: 10/13/19 Time of Disposition Decision: 03:59 DIAGNOSIS: Chest pain Disposition: ADMITTED INPATIENT 09 Certified Medical Emergency: Emergent Condition: Stable Referrals and Follow-Ups: Ira Wilcox CRNP [Primary Care Provider] - - Critical Care Note This patient required my direct & personal management of CC.: No Attestation - Physician/ COTY Attestation Patient care was provided by Advanced Practice Provider:: No The physician spent face to face time with patient:: Yes Advanced Practice Provider documentation review:: Supervising physician onsite and consulted in the evaluation and care of this patient. The physician did have a face to face encounter with the patient. This chart was documented by the indicated scribe, (Heidy Ortiz Scribe) and accurately reflects the services I performed and decisions made by me, Christina Nagel MD, as attested by the provider's signature.
--- NOTE | 2019-10-13 05:33 | HISTORY AND PHYSICAL ---
PRIMARY CARE PROVIDER: KIYA Miller. CHIEF COMPLAINT: Chest pain. HISTORY OF PRESENTING ILLNESS: A 54-year-old male with a history of diabetes mellitus type 2 and hypertension, who had presented to the emergency department with a 1-day history of having chest pain. The patient described it as pressure-like, and stated that he had some mild shortness of breath. He was evaluated in the emergency department, and due to his presenting symptoms it was thought that he would need admission for further management. At the time of my examination, he denied any headache, fever, chills, nausea, vomiting, diarrhea, hemoptysis, melena, or weight changes, but complained of chest pain. PAST MEDICAL HISTORY: Include diabetes mellitus type 2 and hypertension. PAST SURGICAL HISTORY: None. ALLERGIES: Vioxx. CURRENT MEDICATIONS: 1. Elavil 25 mg p.o. at bedtime. 2. Norvasc 10 mg p.o. daily. 3. Novolin 70/30 18 units subcutaneous t.i.d. 4. Levemir dosage not known. 5. Lisinopril 40 mg p.o. daily. 6. Lovastatin 20 mg p.o. at bedtime. SOCIAL HISTORY: No history of smoking, alcohol or illicit drug use. FAMILY HISTORY: No history of coronary disease. REVIEW OF SYSTEMS: Fourteen point review of systems listed as in HPI. Other systems negative. PHYSICAL EXAMINATION: GENERAL: Cooperative friendly male. He is resting comfortably now. VITAL SIGNS: Temperature 98.3 degrees, pulse 78, respirations 20, and blood pressure 137/61. HEENT: Atraumatic, normocephalic. Extraocular movements intact. PERRLA. NECK: Supple. CHEST: Clear to auscultation. CARDIOVASCULAR: Regular rate and rhythm. S1, S2. ABDOMEN: Soft. Positive bowel sounds. EXTREMITIES: No edema. NEUROLOGIC: He is awake, alert, and oriented x3. : No bladder distention. SKIN: Warm. LABORATORIES AND STUDIES: WBC 9.24, hemoglobin 13.3, hematocrit 38.9, and platelets 256,000. Sodium 140, potassium 4.2, chloride 100, CO2 27, BUN 15, creatinine 0.9, and glucose is 100. Troponin is 6. ASSESSMENT: A 54-year-old male with a history of diabetes mellitus type 2 and hypertension had presented to the emergency department with 1-day history of having substernal chest pain. We will place the patient for observation for further evaluation and management 1. Chest pain seems atypical. 2. Diabetes mellitus type 2. 3. Hypertension. PLAN: 1. We will admit patient to medical floor with telemetry. 2. Continue with cardiac workup. 3. We will trend his troponins. 4. We will have patient continue on aspirin. We will use sublingual nitroglycerin p.r.n. chest pain. 5. We will monitor blood glucose, and place patient on sliding scale insulin regimen. 6. Monitor blood pressure. Resume antihypertensive agent. 7. We will put patient on DVT prophylaxis with SCD's. 8. We will continue to follow and reassess. Make further recommendations based on patient's clinical course. cc: Conner Grimes MD
[2019-10-13] MEDS ORDERED: NITROGLYCERIN SL PRN (06:28)
[2019-10-13] MEDS ORDERED: ZOFRAN IV PRN (06:28)
[2019-10-13] MEDS ORDERED: TYLENOL PO PRN (06:28)
[2019-10-13] MEDS ORDERED: PRILOSEC PO SCH (07:00)
--- NOTE | 2019-10-13 07:10 | Diag Imaging Result Doc PS360 ---
EXAM: CHEST-1 VIEW 10/12/2019 HISTORY: CP TECHNIQUE: AP portable at 0004 COMMENT: There is no evidence of acute cardiac or pulmonary disease. Compared to 12/26/2018 there has been no significant change. IMPRESSION: No evidence of acute disease. Electronically signed by Saul Durham 10/13/2019 7:07 AM
--- NOTE | 2019-10-13 07:26 | EKG Report ---
Test Performed on : 10/12/2019 11:34:12 PM Test Reason : ED. NO EKG ORDER FOR MUSE Blood Pressure : / mmHG Vent. Rate : 066 BPM Atrial Rate : 066 BPM P-R Int : 176 ms QRS Dur : 110 ms QT Int : 382 ms P-R-T Axes : 020 039 049 degrees QTc Int : 400 ms Normal sinus rhythm. Nonspecific T wave abnormality Abnormal ECG When compared with ECG of 24-JAN-2019 09:29, Nonspecific T wave abnormality now evident in Inferior leads Nonspecific T wave abnormality now evident in Lateral leads Unconfirmed Result
[2019-10-13] MEDS: HUMULIN R SUBQ SCH ×2 (08:14→11:36)
[2019-10-13] MEDS ORDERED: NORVASC PO SCH (09:00)
[2019-10-13] MEDS ORDERED: ASPIRIN PO SCH (09:00)
[2019-10-13] MEDS ORDERED: PRINIVIL PO SCH (09:00)
--- NOTE | 2019-10-13 11:36 | PROGRESS NOTE ---
DATE: 10/13/2019 The patient was seen and examined by me [id number]. All the laboratory, vital signs, and images were reviewed. The patient presented to the emergency department with a chief complaint of chest pain. He has a history of diabetes, hypertension, and hyperlipidemia. His troponins have been negative x3 and his chest pain has resolved. He had a cardiac catheterization and a stress test done 3 years ago, and he has been followed by Dr. Pearl as an outpatient. I offered him the possibility of doing a stress test today but he prefers to do that as an outpatient with Dr. Pearl since his symptoms were completely gone. 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 After that, he started feeling some chest pain which was described as sharp and throbbing. Atypical for coronary artery disease. Again, this patient wants to go home. I think he is stable enough to be discharged. cc: Jian Escobar MD
--- NOTE | 2019-10-13 11:48 | DISCHARGE SUMMARY ---
ADMISSION DATE: 10/13/2019 DISCHARGE DATE: 10/13/2019 ADMISSION DIAGNOSES: 1. Chest pain, which is atypical. 2. Diabetes mellitus type 2. 3. Hypertension. DISCHARGE DIAGNOSES: 1. Chest pain, which is atypical. 2. Diabetes mellitus type 2. 3. Hypertension. CONSULTATIONS: None. SURGERIES AND PROCEDURES: None. HOSPITAL COURSE: Mr. Gume Chau is a 54-year-old male, with a medical history of diabetes and hypertension, who came in with a days' history of having chest pain, pressure, some shortness of breath with it. He was admitted for further evaluation. Trended troponins have been negative so far. He was continued on aspirin, and he is stable for discharge home. DISCHARGE VITAL SIGNS: Temperature 98.1 degrees, heart rate 63, respiratory rate 19, blood pressure 128/64, O2 saturation 98% on room air. DISCHARGE LAB DATA: White blood cell count 9,000, hemoglobin 13, hematocrit 38, platelet count 256,000. D-dimer 0.41. Sodium 140, potassium 4.2, BUN 15, creatinine 0.9, glucose 100. Calcium 10.1. Magnesium 2.1. Bilirubin 0.35. AST 20, and ALT 19. CK 47. Troponins 8. Albumin 4.2. DISCHARGE MEDICATIONS: 1. Elavil 25 mg p.o. nightly. 2. Lovastatin 20 mg p.o. nightly. 3. P.r.n. nitroglycerin sublingual. 4. Levemir 34 units subcutaneous twice daily. 5. Lisinopril 40 mg p.o. daily. 6. Amlodipine 10 mg p.o. daily. 7. Insulin aspart 100 units subcutaneous t.i.d. before meals. DISCHARGE DIET: Diabetic. DISCHARGE ACTIVITY: As tolerated. DISCHARGE INSTRUCTIONS: If her condition changes, contact physician and/or return to the emergency department. Changes may include, but are not limited to shortness of breath, increased fatigue, excessive bleeding, unexplained weight loss or gain, unmanageable pain, signs or symptoms of infection. DISCHARGE PHYSICIAN FOLLOWUP: KIYA Miller. DISCHARGE DISPOSITION: Home. Dictated by KIYA Short for Jian Escobar MD cc: KIYA Short MD
[2019-10-13 12:23] VITALS: BP 138/70
[2019-10-13] MEDS ORDERED: MEVACOR PO SCH (21:00)
[2019-10-13] MEDS ORDERED: ELAVIL PO SCH (21:00)
== END 2019-10-13 16:22 | disposition home or self-care (01) ==
LOC: ED 23:24 → 3N 23:24 → SUATTDRO 10-13 05:59
PROVIDERS: ATTEND Internal Medicine